=== PATIENT | female | born 1965 | race Hispanic/Latino ===

== ENCOUNTER → 2024-04-02 16:52 | Outpatient (REF) | payer BC, SELFPAY | LOC: WDC 16:52 | PROVIDERS: ATTENDING PHYSICIAN Physician Assistant | DX: Z12.31 Encounter for screening mammogram for malignant neoplasm of breast (principal) | CPT/HCPCS: 77063; 77067 ==

== ENCOUNTER 2025-08-02 14:26 | Emergency (ER) | payer BC, SELFPAY ==
[2025-08-02 14:28] VITALS: BP 159/91
[2025-08-02 14:56] LABS: Hematocrit 39.0 % (37.0-47.0); Hemoglobin 13.5 g/dL (12.0-16.0); Mean Corp Hgb Conc. 34.6 g/dL (33.0-37.0); Mean Corpuscular Volume 88.8 fL (81.0-99.0); Nucleated Red Blood Cells % 0 %; Platelet Count 306 10^3/uL (130-400); Red Cell Dist. Width 12.2 % (11.5-14.5)
[2025-08-02 15:13] LABS: Urine Character Clear (Clear)
[2025-08-02 15:15] LABS: ALT (SGPT) 28 U/L (0-35); AST (SGOT) 26 U/L (14-36); Albumin 4.7 g/dl (3.5-5.0); Alkaline Phosphatase 106 U/L (38-126); Blood Urea Nitrogen 19 mg/dl (7-17); Calcium 9.8 mg/dl (8.4-10.2); Carbon Dioxide 25 mmol/L (22-30); Chloride 107 mmol/L (98-107); Glucose 116 mg/dl (70-99); Lipase 163 U/L (23-300); Potassium 4.2 mmol/L (3.5-5.1); Sodium 139 mmol/L (135-145); Total Protein 8.3 g/dl (6.3-8.2); eGFR > 60.00
[2025-08-02 15:40] LABS: Urine Squamous Cell 21-25 /LPF (Few)
[2025-08-02 15:41] LABS: Urine Red Blood Cell 0-2 /HPF (0-2)
--- NOTE | 2025-08-02 17:14 | ED.GENMED ---
History of Present Illness
General
Chief Complaint: Abdominal Pain
Source: patient
Exam Limitations: none
Time Seen by Provider: 08/02/25 17:10
History of Present Illness
History of Present Illness:
59-year-old female presents with intermittent right flank pain over the past week. The pain radiates to the lower abdomen. She has a history of kidney stones. There is no vomiting. No fever she does note urinary frequency however. No prior
abdominal surgical history otherwise. No other complaints
Past History
Past History
ED Past Medical History: None and HTN
ED Past Surgical History: None
Social History
Tobacco: Non-smoker
Personal:
Living: with family
Phy Exam
Physical Exam
Physical Exam:
General: Well-appearing female in no acute respiratory
HEENT: Normal cephalic atraumatic
Heart: Regular rate and rhythm
Lungs: Clear no wheeze
Abdomen is soft tender to the lower abdomen no guarding nondistended
Course
Orders/Labs/Results
Orders:
Orders
08/02/25 14:36
Urinalysis Reflex To Culture Urgent
Date Specimen was Collected: 08/02/25
Time Specimen was Collected: 14:32
Urine Microscopic Reflex Cult Urgent
Urine Culture Urgent
MYRTLE Source: U
Specimen Description:
Date Specimen was Collected: 08/02/25
Time Specimen was Collected: 14:32
08/02/25 14:38
Complete Blood Count/With Diff Urgent
Comprehensive Metabolic Panel Urgent
Lipase Urgent
08/02/25 17:14
CT Abd/pel Without Iv Or Oral Urgent
Comment:
Reason For Exam: right flank pain
Abnormal Lab Results
08/02/25 08/02/25
14:36 14:38
BUN 19 H mg/dl
(7-17)
Creatinine 0.5 L mg/dL
(0.6-1.0)
Glucose 116 H mg/dl
(70-99)
Total Protein 8.3 H g/dl
(6.3-8.2)
Ur Occult Blood Reflex 1+ A
(Negative)
Leukocyte Esterase Rfl 1+ A
(Negative)
Urine Bacteria (Reflex) Moderate A
(Negative)
08/02/25 14:38
08/02/25 14:38
Vital Signs
Initial and Last Documented VS:
Initial Vital Signs
Temp Pulse Resp BP Pulse Ox
98.4 F 71 16 159/91 97
08/02/25 14:28 08/02/25 14:28 08/02/25 14:28 08/02/25 14:28 08/02/25 14:28
Last Documented Vital Signs
Temp Pulse Resp BP Pulse Ox
98.4 F 71 16 129/73 97
08/02/25 14:28 08/02/25 14:28 08/02/25 14:28 08/02/25 17:31 08/02/25 17:16
MDM/Problems Addressed
Differential Diagnosis Includes:
Right flank pain. There is hematuria in the urine. Consider renal colic versus UTI versus pyelonephritis appendicitis ovarian cyst.
Check labs otherwise.
*Pulse Oximetry
SaO2: 97
Oxygen Mode of Delivery: Room air
Patient hypoxic: no
*Critical Care Note
Total Time (30-74mins, 75-104mins- exclusive of procedures): Not Applicable
Update Note
Update Note:
CT negative urinalysis with hematuria but large amount of squamous cells and moderate bacteria. At this point would not treat urine empirically. If urine culture is positive consider treatment at that time. Patient is appearing well on exam
nontoxic no tenderness. No indication for admission. Stable for discharge
ED Attending Note
-
Portions of this chart may have been created with voice recognition software.� Occasional wrong word or��sound alike� substitutions may have occurred due to the inherent limitations of voice recognition software.
Discharge Plan
Departure
Patient Disposition: Home (Routine Discharge)
Date of Disposition: 08/02/25
Time of Disposition: 19:22
Patient with high blood pressure during this ER visit?: No
Discharge Problem:
Acute flank pain
Instructions: Abdominal Pain
Prescriptions:
No Action
lisinopril 20 MG tablet
20 mg PO DAILY
oxybutynin chloride 5 MG tablet
5 mg PO BID Qty: 60 0RF
phenazopyridine 100 MG tablet
100 mg PO BID Qty: 60 0RF
tramadol 50 MG tablet
50 mg PO Q8HPRN PRN (Reason: pain) Qty: 30 0RF
Referrals:
Rubio Salinas MD [Family Provider, Family Practice]
Activity Restrictions/Additional Instructions:
Use Tylenol or ibuprofen if needed for pain. Return if worse otherwise follow-up with your doctor
Interventions
Interventions:
*Risk Screen - Suicide Last Done: 08/02/25 14:28
*Neglect/Abuse Screening Last Done: 08/02/25 14:28
FI-Tzdsoj-Aqtiuigdti Assessment Last Done: 08/02/25 16:21
Discharge Date and Time
Print Language: [place]
[2025-08-02 17:31] VITALS: BP 129/73
== END 2025-08-02 19:51 | disposition home or self-care (01) ==
LOC: EMR 14:26
PROVIDERS: Emergency Medicine; EMERGENCY PHYSICIAN Emergency Medicine; FAMILY PHYSICIAN Family Medicine
DX: R10.9 Unspecified abdominal pain (principal); I10 Essential (primary) hypertension; Z87.442 Personal history of urinary calculi
CPT/HCPCS: 99284; 74176; 80053; 81003; 81015; 83690; 85025; 87077; 87086